=== PATIENT | female | born 1945 | race Caucasian/White ===

== ENCOUNTER → 2017-08-24 | Outpatient (CLI) | payer MEDICARE ==
[~2017-08-24] MED LIST: ACTO35TA PO; CALTTAB2 PO; FENO50TA PO; FISH1000 PO; GLUC500C56 PO; LEVO100T60 PO; LORA10TA7 PO; LORT7.5T3 PO; NABU750T PO; NIAC100T3 PO; PSEU30TA PO; PYRI100T4 PO; RANI150 PO; SERT100 PO; TAB-TAB PO; VITA10002 PO; VITA500L4 PO
--- NOTE | 2017-08-29 09:19 | RSPPFT ---
DATE OF PROCEDURE: 08/24/17 COMMENTS: VOLUMES DYNAMIC: FVC and FEV1 mildly reduced. STATIC: FRC, RV and TLC mildly reduced. FLOWS: FEV1% and FEF 25-75 above normal. DIFFUSION: Severely reduced. FLOW VOLUME LOOP: Restrictive configuration. IMPRESSION: Mild restrictive ventilatory defect with no significant airways obstruction and no significant change post-bronchodilator. There is a severe reduction in diffusion.
== END ==
LOC: HRSP 11:59
PROVIDERS: ATTEND Internal Medicine
DX: J44.9 Chronic obstructive pulmonary disease, unspecified (principal); R06.02 Shortness of breath
CPT/HCPCS: 94060; 94618; 94726; 94729; 95012